=== PATIENT | male | born 1980 | race American Indian/Alaskan Native ===

== ENCOUNTER 2019-01-02 11:57 | Emergency (ER) | payer BC ==
--- NOTE | 2019-01-02 12:04 | Emergency Department Report ---
Blank Doc - Documentation Documentation: This is a 38-year-old male that presents with HTN. Patient denies any symptoms. Stated does have a PCP and takes medications. Denies any other complaints or symptoms. This initial assessment/diagnostic orders/clinical plan/treatment(s) is/are subject to change based on patient's health status, clinical progression and re- assessment by fellow clinical providers in the ED. Further treatment and workup at subsequent clinical providers discretion. Patient/guardians urged not to elope from the ED as their condition may be serious if not clinically assessed and managed. Initial orders include: 1- Patient sent to [facility] for further evaluation and treatment
[2019-01-02] MEDS ORDERED: CATAPRES PO ONE (12:22)
--- NOTE | 2019-01-02 12:22 | Emergency Department Report ---
ED General Adult HPI - General Chief complaint: High BP Stated complaint: HBP Time Seen by Provider: 01/02/19 12:03 Source: patient Mode of arrival: Ambulatory Limitations: No Limitations - History of Present Illness Initial comments: Patient is a 38-year-old -[place] male comes to the ER with high blood pressure. He is being treated for hypertension taking hydrochlorothiazide 25 mg each morning and lisinopril 40 mg each morning. However, he forgot to take his blood pressure medicine on Wednesday and Wednesday and since then his blood pressure is running high. He is having no complaints. There is no headache, no chest pain no shortness of breath. He could not get in with his primary care doctors are presented to the ER because he's had a previous CVA. His previous stroke was 05/20/2018. Pt states he has changed his diet, he has quit smoking and drinking, and he exercises daily. -: Gradual, days(s) Severity scale (0 -10): 0 - Related Data Home Medications Medication Instructions Recorded Confirmed Last Taken Lisinopril [Zestril TAB] 40 mg PO QDAY 01/02/19 01/02/19 01/02/19 hydroCHLOROthiazide [HCTZ] 25 mg PO QDAY 01/02/19 01/02/19 01/02/19 Previous Rx's Medication Instructions Recorded Last Taken Type Amlodipine Besylate [Norvasc] 5 mg PO DAILY #30 tablet 01/02/19 Unknown Rx Allergies Allergy/AdvReac Type Severity Reaction Status Date / Time No Known Allergies Allergy Unverified 01/02/19 12:00 ED Review of Systems ROS: Stated complaint: HBP Other details as noted in HPI Comment: All other systems reviewed and negative Constitutional: denies: chills Eyes: denies: eye pain ENT: denies: ear pain, throat pain Respiratory: denies: cough, orthopnea, shortness of breath, SOB with exertion, SOB at rest, stridor Cardiovascular: as per HPI. denies: chest pain, palpitations, dyspnea on exertion, orthopnea Endocrine: denies: see HPI, flushing, intolerance to cold Gastrointestinal: denies: abdominal pain, nausea, vomiting Genitourinary: denies: dysuria Musculoskeletal: denies: back pain Skin: denies: rash Neurological: denies: headache, weakness, numbness, paresthesias, confusion, abnormal gait, vertigo Psychiatric: denies: anxiety Hematological/Lymphatic: denies: as per HPI, easy bleeding ED Past Medical Hx - Past Medical History Previous Medical History?: Yes Hx Hypertension: Yes Hx CVA: Yes (2019) - Surgical History Past Surgical History?: No - Family History Family history: no significant - Social History Smoking Status: Never Smoker Substance Use Type: None - Medications Home Medications: Home Medications Medication Instructions Recorded Confirmed Last Taken Type Amlodipine Besylate [Norvasc] 5 mg PO DAILY #30 tablet 01/02/19 Unknown Rx Lisinopril [Zestril TAB] 40 mg PO QDAY 01/02/19 01/02/19 01/02/19 History hydroCHLOROthiazide [HCTZ] 25 mg PO QDAY 01/02/19 01/02/19 01/02/19 History ED Physical Exam - General Limitations: No Limitations General appearance: alert, in no apparent distress - Head Head exam: Present: atraumatic, normocephalic - Eye Eye exam: Present: normal appearance, PERRL, EOMI - ENT ENT exam: Present: normal exam, mucous membranes moist - Neck Neck exam: Present: normal inspection - Respiratory Respiratory exam: Present: normal lung sounds bilaterally - Cardiovascular Cardiovascular Exam: Present: regular rate - GI/Abdominal GI/Abdominal exam: Present: soft, normal bowel sounds - Rectal Rectal exam: Present: deferred - Extremities Exam Extremities exam: Present: normal inspection, full ROM - Back Exam Back exam: Present: normal inspection, full ROM - Neurological Exam Neurological exam: Present: alert, oriented X3, CN II-XII intact, normal gait, reflexes normal. Absent: abnormal gait, motor sensory deficit - Psychiatric Psychiatric exam: Present: normal affect, normal mood - Skin Skin exam: Present: warm, dry, intact ED Course Vital Signs 01/02/19 01/02/19 01/02/19 12:04 12:14 12:32 Temperature 98.5 F Pulse Rate 82 79 Respiratory 20 16 16 Rate Blood Pressure 156/115 Blood Pressure 153/108 [Right] O2 Sat by Pulse 100 98 Oximetry 01/02/19 01/02/19 01/02/19 12:36 12:38 13:07 Temperature Pulse Rate 75 75 72 Respiratory 16 Rate Blood Pressure 153/108 153/108 Blood Pressure 156/110 [Right] O2 Sat by Pulse Oximetry ED Medical Decision Making - Medical Decision Making bp rechecked and 153/108. due to not wanting to lower too fast; I've given pt norvasc I will start him on daily dose norvasc and he will follow up with pcp this week 1235 on reexam pt has no symptoms. no cp. no sob. no headache. he is ambulatory and without focal neuro deficit Vital Signs (72 hours) 01/02/19 01/02/19 01/02/19 12:04 12:14 12:32 Temperature 98.5 F Pulse Rate 82 79 Respiratory 20 16 16 Rate Blood Pressure 156/115 Blood Pressure 153/108 [Right] O2 Sat by Pulse 100 98 Oximetry DC HOME WITH OUTPT FOLLOW UP ON DC NO CP, NO SOB, NO HEADACHE. NEURO INTACT. DC HOME WITH DETAILED INSTRUCTIONS Critical care attestation.: If time is entered above; I have spent that time in minutes in the direct care of this critically ill patient, excluding procedure time. ED Disposition Clinical Impression: Hypertension Disposition: DC-01 TO HOME OR SELFCARE Is pt being admited?: No Does the pt Need Aspirin: No Condition: Stable Instructions: DASH Eating Plan (ED), Hypertension (ED) Additional Instructions: TAKE HOME MEDS DAILY LOW SALT LOW FAT DIET CONTINUE TO EXERCISE DAILY DRINK A LOT OF WATER FOLLOW UP WITH PCP THIS WEEK ONLY CHECK YOUR BP ONCE PER DAY, SAME ARM, AND SAME TIME OF DAY; RECORD THIS TO TAKE TO YOUR PCP. Prescriptions: Amlodipine Besylate [Norvasc] 5 mg PO DAILY #30 tablet Referrals: [facility] [Outside] - 3-5 Days Time of Disposition: 12:35
[2019-01-02] MEDS ORDERED: NORVASC PO ONE (12:32)
[2019-01-02 13:15] VITALS: BP 156/110
== END 2019-01-02 13:13 | disposition home or self-care (01) ==
LOC: ED 11:57
DX: I10 Essential (primary) hypertension (principal)
CPT/HCPCS: 99282